=== PATIENT | female | born 1995 | race Hispanic/Latino ===

== ENCOUNTER 2021-02-26 01:14 | Emergency (ER) | payer SELFPAY ==
[2021-02-26] MEDS ORDERED: Ondansetron ODT 8 MG TAB ONE (01:36)
[2021-02-26] MEDS ORDERED: Acetaminophen 500 MG TAB ONE (02:45)
[2021-02-26 23:20] LABS: SARS-CoV-2 PCR by NAA DETECTED (NotDetected)
== END 2021-02-26 03:50 | disposition home or self-care (01) ==
LOC: ERS 01:14
DX: U07.1 COVID-19 (principal); R11.2 Nausea with vomiting, unspecified; F17.210 Nicotine dependence, cigarettes, uncomplicated
CPT/HCPCS: 87804; 99284; Q0162; U0003; U0005

== ENCOUNTER 2021-03-18 07:53 | Emergency (ER) | payer SELFPAY ==
[2021-03-18] MEDS ORDERED: Ondansetron ODT 4 MG TAB ONE (08:12)
[2021-03-18 10:09] LABS: Bilirubin Negative (Negative); Blood, Urine Negative (Negative); Clarity Clear (Clear); Glucose, Urine (Dipstick) Normal (Negative); Ketone, Urine Negative (Negative); Leukocyte 500 Leu/uL (Negative); Nitrite Negative (Negative); Protein, Urine (Dipstick) Negative (Neg-Trace); RBC/HPF 0-3 HPF (0-3); Specific Gravity, Urine 1.009 (1.002-1.036); Urobilinogen Normal mg/dL (Less than 2); pH, Urine 6.5 (5.0-9.0)
[2021-03-18 10:10] LABS: Bacteria/HPF 1+ HPF (None Seen)
[2021-03-18 10:11] LABS: Pregnancy Test - Urine (BHCG) Negative (Negative); Pregu Control Background? CLEAR/WHITE (CLR/WHITE); Pregu Control Bar Appear? YES (CONTROL BAR); Specific Gravity 1.009 (1.002-1.036)
[2021-03-18 12:10] LABS: SARS-CoV-2 PCR by NAA Not Detected (NotDetected)
== END 2021-03-18 11:00 | disposition home or self-care (01) ==
LOC: ERS 07:53
DX: N39.0 Urinary tract infection, site not specified (principal); R19.7 Diarrhea, unspecified; Z20.822 Contact with and (suspected) exposure to COVID-19; F17.210 Nicotine dependence, cigarettes, uncomplicated
CPT/HCPCS: 81003; 81015; 81025; 96372; 99284; J0500; Q0162; U0003; U0005

== ENCOUNTER 2022-01-30 17:28 | Emergency (ER) | payer OTHER, SELFPAY | END 2022-01-30 23:59 | disposition left against medical advice (07) | LOC: ERS 17:28 | DX: Z53.21 Procedure and treatment not carried out due to patient leaving prior to being seen by health care provider (principal) ==

== ENCOUNTER 2022-02-01 14:23 | Emergency (ER) | payer SELFPAY ==
[2022-02-01] MEDS ORDERED: Ondansetron ODT 4 MG TAB ONE (14:52)
== END 2022-02-01 17:30 | disposition home or self-care (01) ==
LOC: ERS 14:23
DX: A08.4 Viral intestinal infection, unspecified (principal); F17.210 Nicotine dependence, cigarettes, uncomplicated
CPT/HCPCS: 99283; Q0162

== ENCOUNTER 2022-02-09 22:14 | Emergency (ER) | payer SELFPAY ==
[2022-02-09] MEDS ORDERED: Ketorolac Tromethamine 30 MG/ML VIAL ONE (22:29)
[2022-02-09] MEDS ORDERED: Ondansetron PF 4 MG/2 ML Vial ONE (22:29)
[2022-02-09] MEDS ORDERED: Dicyclomine 20 MG/2 ML VIAL ONE (22:29)
[2022-02-09] MEDS ORDERED: Ondansetron ODT 4 MG TAB ONE (22:47)
== END 2022-02-09 22:49 | disposition home or self-care (01) ==
LOC: ERS 22:14
DX: R11.2 Nausea with vomiting, unspecified (principal); F17.210 Nicotine dependence, cigarettes, uncomplicated
CPT/HCPCS: 99284; J1885; J2405; Q0162